=== PATIENT | male | born 1975 | race Caucasian/White ===

== ENCOUNTER → 2017-02-13 | Outpatient (CLI) | payer OTHER ==
--- NOTE | 2017-02-13 15:52 | KCIC ---
PROCEDURE MR of the left knee HISTORY Left knee pain chronically. Swelling. Pain with running. TECHNIQUE Standard multiplanar sequences are obtained. Standard noncontrast images are obtained. COMPARISON None FINDINGS No evidence of medial meniscal tear. No evidence of lateral meniscal tear. The anterior cruciate ligament and the posterior cruciate ligament are intact. Medial collateral ligament is intact. Iliotibial band, fibular collateral ligament, biceps femoris tendon and popliteus tendon are intact. Trace joint fluid. No evidence of osteochondral loose body. No evidence of acute articular cartilage defect. No bone lesion or acute fracture. Trace fluid in the popliteal fossa. There is a small soft tissue cyst or ganglion along the posteromedial proximal tibial metaphysis. Measures 15 millimeters diameter. IMPRESSION No evidence of meniscal tear or internal derangement. Electronically signed by: Dmitri Tripp MD (Feb 13, 2017 15:50:09)
--- NOTE | 2017-02-13 15:56 | KCIC ---
PROCEDURE MR of the right knee HISTORY Right knee pain chronically. There is some swelling. Pain with running. TECHNIQUE Standard multiplanar sequences are obtained. COMPARISON None FINDINGS No evidence of medial meniscal tear. No evidence of lateral meniscal tear. The anterior and posterior cruciate ligaments are intact. Medial collateral ligament is intact. Iliotibial band unremarkable. Fibular collateral ligament, biceps femoris tendon and popliteus tendon are intact. Extensor mechanism is intact. There is mild soft tissue edema along the anterior and posterior surface of the patellar tendon. There is also mild edema anterior to the patella. Trace joint effusion. No evidence of osteochondral loose body. No acute articular cartilage defect. No bone lesion or acute fracture. No acute soft tissue injury. IMPRESSION 1. No meniscal tear or internal derangement. 2. Mild edema or inflammation along the anterior and posterior patellar tendon, and anterior to the patella. Considerations include mild tendinosis, bursitis or other nonspecific inflammatory or traumatic etiology. The patellar tendon itself is intrinsically intact. Electronically signed by: Dmitri Tripp MD (Feb 13, 2017 15:54:56)
== END | disposition home or self-care (01) ==
LOC: KCIC MRI 14:08
PROVIDERS: ATTEND Family Medicine
DX: M25.561 Pain in right knee (principal)
CPT/HCPCS: 73721